=== PATIENT | female | born 1985 | race Caucasian/White ===

== ENCOUNTER 2023-08-29 17:29 | Emergency (ER) | payer MEDICAID ==
[~2023-08-29] VITALS: Ht 165.1 cm; Wt 82.0 kg
[2023-08-29 17:37] VITALS: TEMP 98.2; O2SAT 99
[2023-08-29] MEDS ORDERED: MORPHINE SULFATE 4 MG/ML INJ (FOR IV/IM USE) IV STA (19:17)
[2023-08-29] MEDS ORDERED: ONDANSETRON HCL 4MG/2ML INJ IV STA (19:17)
[2023-08-29 19:59] LABS: BASOPHILS % 0.8 % (0.0-2.0); EOSINOPHILS % 1.3 % (0.0-5.0); HEMATOCRIT. 33.8 % (36.0-48.0); HEMOGLOBIN. 11.1 g/dL (12.0-16.0); LYMPHOCYTES % 28.9 % (20.0-50.0); MEAN CORPUSCULAR HEMOGLOBIN 27.8 pg (28.0-32.0); MEAN CORPUSCULAR HGB CONC 32.8 g/dL (31.0-37.0); MEAN CORPUSCULAR VOLUME 84.8 fL (81.0-99.0); MEAN PLATELET VOLUME 7.8 fl (7.4-10.4); PLATELET 505 x1000/uL (130-400); RED BLOOD CELL COUNT 3.98 mill/uL (4.2-5.4); RED CELL DISTRIBUTION WIDTH 15.2 % (11.6-14.6); WHITE BLOOD COUNT 8.7 x1000/uL (4.5-11.0)
[2023-08-29 20:10] LABS: CHLORIDE 109 mEq/L (98-107); INR 0.9; PROTHROMBIN TIME 10.2 sec (9.6-11.0); SODIUM 135 mEq/L (136-145)
[2023-08-29 20:11] LABS: CALCIUM 9.5 mg/dL (8.7-10.4); CARBON DIOXIDE 22 mEq/L (21-32)
[2023-08-29 20:13] LABS: HCG SCREEN NEGATIVE
[2023-08-29 20:16] LABS: CREATININE 1.2 mg/dL (0.6-1.0); GLUCOSE 127 mg/dL (70-105); UREA NITROGEN BLOOD 16 mg/dL (9-23)
[2023-08-29 20:18] LABS: CREATINE KINASE 62 IU/L (34-145)
[2023-08-29 20:23] LABS: TROPONIN I HIGH SENSITIVITY < 4 ng/L (3.0-34)
[2023-08-29 20:24] LABS: ETHANOL BLOOD < 10 mg/dL (<10)
[2023-08-29] MEDS: SODIUM CHLORIDE 0.9% 1,000 ML IV ONE (20:40)
[2023-08-29] MEDS: DIAZEPAM 5 MG/ML 2ML SYR IV ONE (20:56)
[2023-08-29] MEDS ORDERED: IOHEXOL-350 100 ML BOTTLE ONE (21:10)
[2023-08-30 02:00] VITALS: BP 100/53; PULSE 68; RESP 17
== END 2023-08-30 02:45 | disposition short-term general hospital (02) ==
LOC: ER 17:29 → CANBEDREQ 08-30 02:41 → ER 08-30 02:45
DX: R53.1 Weakness (principal); R41.82 Altered mental status, unspecified
CPT/HCPCS: 80048; 80320; 82550; 82962; 84703; 83605; 83690; 85025; 85610; 86850; 86900; 86901; 84484; 36415; 71045; 70496; 70498; 70450; 93005; 96361; 96374; 99291; Q9967; J3360; J7030; Z7610; G0480